=== PATIENT | male | born 1965 | race Caucasian/White ===

== ENCOUNTER 2016-10-01 16:03 | Emergency (ER) | payer SELFPAY ==
[~2016-10-01] VITALS: Ht 185.4 cm; Wt 90.9 kg
[2016-10-01 16:05] VITALS: BP 132/78; PULSE 96; RESP 12; TEMP 98.6; O2SAT 97
== END 2016-10-01 18:50 | disposition left against medical advice (07) ==
LOC: NED 16:03
DX: M25.562 Pain in left knee (principal); Z53.21 Procedure and treatment not carried out due to patient leaving prior to being seen by health care provider
CPT/HCPCS: 99281